=== PATIENT | female | born 1940 | race Caucasian/White ===

== ENCOUNTER → 2020-09-22 14:14 | Outpatient (CLI) | payer OTHER, SELFPAY ==
--- NOTE | ~2020-09-22 | MM_ITS ---
EXAMINATION: MM screening [facility] BI w bobbi HISTORY: Screening mammogram, family history of breast cancer in her sister. TECHNIQUE: Craniocaudal and mediolateral oblique 3-D tomosynthesis images were obtained and synthetic 2-D images were generated. CAD analysis was submitted and interpreted. COMPARISON: 04/17/2017, 06/02/2015 BREAST PARENCHYMAL COMPOSITION: There are scattered areas of fibroglandular density. FINDINGS: Stable focal asymmetry is present in the upper outer quadrant of the left breast. There is no evidence of suspicious mass, calcification, or architectural distortion to suggest malignancy in e ither breast. There has been no suspicious interval change. IMPRESSION: 1. No mammographic evidence of malignancy. 2. Recommend routine screening mammography in one year. BI-RADS Category 1: Negative Reviewed, dictated and finalized at location A.
--- NOTE | ~2020-09-22 | DEXA_ITS ---
Bone Density Report Name: Heather Eugene Age: 80 Sex: Female Ethnicity: White Date of : 1940 Indication: postmenopausal; screening for osteoporosis; height loss; hysterectomy; Referring Provider: RAIN PALACIOS Study: Bone densitometry was performed. Exam Date: September 22, 2020 Accession number: [id number] Bone Density: Region BMD T-score Z-score Classification AP Spine (L1, L2, L3) 0.720 -2.7 -0.2 Osteoporosis Femoral Neck (Left) 0.483 -3.3 -1.1 Osteoporosis Total Hip (Left) 0.681 -2.1 -0.2 Osteopenia Femoral Neck (Right) 0.520 -3.0 -0.7 Osteoporosis Total Hip (Right) 0.695 -2.0 -0.1 Osteopenia Total Hip Mean 0.688 -2.1 -0.2 Osteopenia World Health Organization criteria for BMD impression classify patients as: Normal (T-score at or above -1.0), Osteopenia (T-score between -1.0 and -2.5), or Osteoporosis (T-score at or below -2.5). 10-year Fracture Risk: FRAX not reported because: Some T-score for Spine Total or Hip Total or Femoral Neck at or below -2.5 Clinical Information Provided by Patient: Smokes Has the following medical conditions: Hysterectomy Patient maximum height was 61 Menopause Age: 39 No regular weight bearing exercise Does not regularly consume dairy products Onset of menses at age 18 Number of children 2 Impression: The patient has osteoporosis, based on the Left Femoral Neck T-score. The patient has risk factors, including: smoking. Discussion: INCREASED RISK OF FRACTURE. BONE DENSITY IS UNDESIRABLY LOW AT ONE OR MORE SKELETAL SITES, CONSISTENT WITH POSTMENOPAUSAL OSTEOPOROSIS. This patient's lowest T-score meets the World Health Organization's (WHO) criteria for osteoporosis at one or more sites (T-score -2.5 or below). In untreated patients, the risk of osteoporotic fracture increases approximately two-fold for each 1.0 SD decrease in T-score. Low bone density is not the only risk factor for fracture; also consider factors such as patient's age, frailty or poor health, risk of falling, risk of injury, previous osteoporotic fracture, family history of osteoporosis, cigarette smoking, low body weight, etc. Not everyone with low bone mineral density has osteoporosis; osteomalacia and other metabolic bone disorders should also be considered. Patients who have osteoporosis should be evaluated for specific diseases and conditions (secondary causes) that may cause or contribute to bone loss. The [place] [employer] Endocrinologists (AACE) and National Osteoporosis Foundation (NOF) recommend pharmacologic intervention for all postmenopausal women whose T-score is in this range. The patient should follow a healthful lifestyle (good nutrition with adequate calcium and vitamin D, and appropriate weight-bearing exercise). Follow-Up: Consider a repeat BMD and Vertebral Fracture
== END ==
PROVIDERS: PCP Emergency Medicine; Visit Provider Emergency Medicine
DX: Z12.31 Encounter for screening mammogram for malignant neoplasm of breast (principal); M81.0 Age-related osteoporosis without current pathological fracture; M85.852 Other specified disorders of bone density and structure, left thigh; M85.851 Other specified disorders of bone density and structure, right thigh
CPT/HCPCS: 77063; 77067; 77080

== ENCOUNTER → 2022-02-23 09:41 | Outpatient (CLI) | payer OTHER, SELFPAY ==
--- NOTE | ~2022-02-23 | CT_ITS ---
EXAMINATION: CT chest high resolution wo ar DATE: 02/23/2022 09:59 INDICATION: Cough, tobacco use TECHNIQUE: Computed tomography (CT) of the chest was performed without intravenous contrast. The dose -length product (DLP) was 122.17 mGy-cm. Automated exposure control and iterative reconstruction tech nique were employed. COMPARISON: None FINDINGS: There is mild emphysema. There are two nodules measuring 2 mm in the left upper lobe on [place]. There is a 2 mm nodule of the right lung apex. There appears to be a 2.5 cm nodule of the righ t thyroid lobe. Calcified pulmonary nodules and calcified right hilar lymph nodes are consistent with old granulomatous disease. There is a posterolateral diaphragmatic hernia on the right containing fa t. Punctate calcifications in an otherwise normal spleen likely represent healed granulomatous diseas e. There is severe thoracic spondylosis. IMPRESSION: 1. Mild emphysema. 2. Nodules of the upper lobes measuring up to 2 mm. Follow-up low-dose CT in one year is recommended 3. Right thyroid nodule. Thyroid ultrasound is recommended for risk stratification. Reviewed, dictated and finalized at location A. IMPRESSION: 1. Mild emphysema. 2. Nodules of the upper lobes measuring up to 2 mm. Follow-up low-dose CT in on e year is recommended 3. Right thyroid nodule. Thyroid ultrasound is recommended for risk stratificat ion.
== END ==
PROVIDERS: PCP Emergency Medicine
DX: R05.9 Cough, unspecified (principal); R91.1 Solitary pulmonary nodule; J43.9 Emphysema, unspecified
CPT/HCPCS: 71250

== ENCOUNTER → 2022-03-17 14:32 | Outpatient (CLI) | payer OTHER, SELFPAY ==
--- NOTE | ~2022-03-17 | US_ITS ---
EXAMINATION: US thyroid DATE: 03/17/2022 14:47 INDICATION: Nontoxic single thyroid nodule. TECHNIQUE: Multiple ultrasound images of the thyroid were obtained. COMPARISON: None. FINDINGS: The right thyroid lobe measures 4.2 x 1.8 x 3.3 cm. The left thyroid lobe measures 3.6 x 1.6 x 1.1 c m. In the right thyroid lobe, there is a 3.1 cm solid, isoechoic, wider than tall nodule with smooth margin without echogenic foci (TI-RADS TR3). In the left thyroid isthmus, there is an 8 mm solid, hy poechoic, wider than tall nodule with smooth margin without echogenic foci (TR4). IMPRESSION: 1. Multinodular goiter. Ultrasound-guided fine-needle aspiration of the right thyroid nodule is recom mended. Reviewed, dictated and finalized at location A. IMPRESSION: 1. Multinodular goiter. Ultrasound-guided fine-needle aspiration of the right t hyroid nodule is recommended.
--- NOTE | ~2022-03-17 | MM_ITS ---
EXAMINATION: MM screening [facility] BI w bobbi HISTORY: Screening TECHNIQUE: Craniocaudal and mediolateral oblique 3-D tomosynthesis images were obtained and synthetic 2-D images were generated. CAD analysis was submitted and interpreted. COMPARISON: Comparison to multiple prior studies sequentially, with oldest reviewed study dated 06/02. BREAST PARENCHYMAL COMPOSITION: There are scattered areas of fibroglandular density. FINDINGS: There is no evidence of suspicious mass, calcification, or architectural distortion to sugg est malignancy in either breast. There has been no suspicious interval change. IMPRESSION: 1. No mammographic evidence of malignancy. 2. Recommend routine screening mammography in one year. BI-RADS Category 1: Negative Reviewed, dictated and finalized at location A.
== END ==
PROVIDERS: PCP Emergency Medicine; Visit Provider Emergency Medicine
DX: Z12.31 Encounter for screening mammogram for malignant neoplasm of breast (principal); E04.2 Nontoxic multinodular goiter
CPT/HCPCS: 76536; 77063; 77067

== ENCOUNTER 2022-03-31 11:52 | Outpatient (CLI) | payer OTHER, SELFPAY ==
--- NOTE | ~2022-03-31 | US_ITS ---
EXAMINATION: US FNA w image guidance DATE: 03/31/2022 12:53 INDICATION: Nontoxic goiter, unspecified. TECHNIQUE: The procedure and its benefits and risks were discussed with the patient. Risks specifically discusse d included bleeding. The patient verbalized understanding of the risks and agreed to proceed. The nec k was prepped and draped in the usual sterile manner. 1% lidocaine was used for local anesthesia. 6 passes were made with a 25G needle into the lesion under ultrasound guidance. There were no immedia te complications. FINDINGS: Grayscale ultrasound images demonstrate needles advanced into a 3.1 cm nodule in right thyroid lobe f or biopsy. IMPRESSION: 1. Ultrasound-guided fine needle aspiration of a nodule in right thyroid lobe. Reviewed, dictated and finalized at location A. [employer]
== END 2022-03-31 11:53 | disposition home or self-care (01) ==
PROVIDERS: PCP Emergency Medicine; Visit Provider Emergency Medicine
DX: E04.9 Nontoxic goiter, unspecified (principal)
CPT/HCPCS: 10005; 88173; 88305

== ENCOUNTER 2022-07-01 18:52 | Emergency (ER) | payer OTHER, SELFPAY ==
--- NOTE | ~2022-07-01 | XR_ITS ---
XR chest 1V portable 07/01/2022 21:44 Indication: Weakness and hypertension. Procedure: AP portable chest Comparison: 10/26/2018 Findings: No focal air space disease, pulmonary edema, pleural effusion or suspected pneumothorax. He art size normal. Moderate size hiatal hernia. There is dextroscoliosis of the thoracic spine. There i s atherosclerosis. There are diaphragmatic calcifications suggesting previous asbestos exposure. No a cute osseous abnormality. Impression: 1: No acute cardiopulmonary disease. Reviewed, dictated and finalized at location A. LE CAPPER Impression: 1: No acute cardiopulmonary disease.
[2022-07-01 18:56] VITALS: BP 157/55; PULSE 75; RESP 18; TEMP 36.4; O2SAT 98
--- NOTE | 2022-07-01 21:28 | ECG_ITS ---
Measurements Intervals [place] Rate: 71 P: 32 IA: 186 QRS: -67 QRSD: 102 T: 40 QT: 401 QTc: 438 Interpretive Statements SINUS RHYTHM BASELINE ARTIFACT INCOMPLETE RIGHT BUNDLE BRANCH BLOCK LEFT ANTERIOR FASCICULAR BLOCK POSSIBLE LATERAL MYOCARDIAL INFARCTION, PROBABLY OLD ABNORMAL ECG NO PREVIOUS ECG AVAILABLE FOR COMPARISON Electronically Signed On 07-02-2022 16:37:57 RN CARE MANAGER by Brent Jennings M.D.
--- NOTE | 2022-07-01 21:31 | ED.GENADULT ---
HPI - General Adult General Chief complaint: Dizziness Stated complaint: dizzy/htn Time Seen by Provider: 07/01/22 20:56 History of Present Illness HPI narrative: This is a 81-year-old female presenting ED with chief complaint of weakness x2 weeks. Patient had her shingles vaccine 2 weeks ago. Since then she says that she has just felt weak. No focal complaints such as URI symptoms, chest pain difficulty breathing fever chills abdominal pain or urinary symptoms. She has been treating herself with zinc and magnesium supplementation but she has been taking a directed. she does notice that she does not drink very much fluid. earlier today she had. Of disequilibrium where she felt like she can have her balance. During this time there is no focal deficits, no double vision dysphagia dysarthria or dystaxia. Related Data Home Medications Medication Instructions Recorded Confirmed albuterol sulfate 90 mcg/actuation 2 puff inhalation Q4-6H PRN 07/15/19 04/06/22 aerosol inhaler cyclosporine 0.05 % eye drops in a 1 drop ophthalmic (eye) .COMPLEX 07/15/19 04/06/22 dropperette (Restasis) vitamin B12 1,000 mcg-folic acid See Rx Instructions .Route .COMPLEX 07/15/19 04/06/22 400 mcg sublingual tablet fqnraqsh-udkaikw-koif-lutein tablet See Rx Instructions PO DAILY 07/16/19 04/06/22 olopatadine 0.6 % nasal spray 2 spray intranasal BID 03/08/21 04/06/22 calcium carbonate 600 mg-vitamin cap PO .PO 03/22/22 04/06/22 D3 10 mcg (400 unit) capsule cetirizine 10 mg tablet (Zyrtec) 10 mg PO DAILY PRN 03/22/22 04/06/22 Allergies Allergy/AdvReac Type Severity Reaction Status Date / Time codeine Allergy Mild Vomiting Verified 04/05/22 09:18 tetanus immune globulin Allergy Mild Swelling Verified 04/05/22 09:18 Tetanus Vaccines and Toxoid Allergy Unknown Unknown Verified 04/05/22 09:18 [facility] Past Medical History Medical History GERD (gastroesophageal reflux disease) History of HLD (hyperlipidemia) Tobacco abuse Surgical History Surgical History H/O dilation and curettage H/O total hysterectomy S/P appendectomy S/P endometrial ablation S/P myomectomy [place] teeth removed Family History Family History Sibling Family history of malignant neoplasm of breast in first degree relative Father Family history of malignant neoplasm, Onset Age: 97 Mother Family history of dementia, Onset Age: 95 Social History Social History Smoking packs per day: 0.5 Smoking cigarettes per day: 10.0 Years smoked: 61 Smoking pack-years: 30.50 Smoking status: Current every day smoker Tobacco type: cigarettes Alcohol intake: current Substance use: never Lack of Transportation: No Lack of Food: Never True Current Housing: I Have Housing Concerned About Future Housing: No Difficulty Paying Gas/Electric Bills: No Difficulty Paying for Meds: No Currently Unemployed: No Education: High School Diploma/GED Difficulty w/ Childcare or Family Care: No Exam Narrative: APPEARANCE: No apparent distress. patient is well-appearing Head: atraumatic. EYES: EOMI, NOSE: Atraumatic NECK: Trachea midline RESPIRATORY: No increased rate of breathing, clear to auscultation bilaterally CARDIOVASCULAR: RRR, no peripheral edema ABDOMINAL: Non-distended nontender no guarding or rebound MUSCULOSKELETAl: No obvious deformities NEURO: Alert. Moving 4/4 extremities SKIN:: Warm, dry. Normal color PSYCHIATRIC: Normal affect Course Vital Signs Vital signs: Vital Signs Temperature 97.5 F L 07/01/22 18:56 Pulse Rate 75 07/01/22 18:56 Respiratory Rate 18 07/01/22 18:56 Blood Pressure 157/55 H 07/01/22 18:56 Pulse Oximetry 98 07/01/22 18:56 Oxygen Delivery Room Air 02
[2022-07-01 21:58] LABS: Appearance Urine Clear (Clear); Basophils Absolute Auto 0.1 K/mm3 (0.0-0.1); Basophils Percent Auto 0.7 % (0.2-1.2); Bilirubin Urine Negative (Negative); Blood Urine Trace-intact (Negative); Color Urine Yellow (Yellow); Eosinophils Absolute Auto 0.1 K/mm3 (0-0.3); Eosinophils Percent Auto 1.3 % (0-4.4); Glucose Urine UA Negative (Negative); Hematocrit 36.8 % (37.0-47.0); Hemoglobin 12.7 g/dL (12.0-15.0); Immature Granulocyte Absolute 0.03 K/mm3 (0.00-0.031); Immature Granulocyte Percent A 0.3 % (0-0.5); Ketones Urine Negative (Negative); Leukocyte Esterase Ur 2+ LEU/UL (Negative); Lymphocytes Absolute Auto 2.56 K/mm3 (0.9-3.2); Lymphocytes Percent Auto 24.4 % (18.3-44.2); Mean Corpuscular HGB Conc 34.5 g/dl (32-36); Mean Corpuscular Hemoglobin 30.9 pg (26-34); Mean Corpuscular Volume 89.5 fl (80-100); Mean Platelet Volume 9.7 fl (7.4-10.4); Monocytes Absolute Auto 0.7 K/mm3 (0.1-0.6); Monocytes Percent Auto 6.6 % (2.6-8.5); Neutrophils Percent Auto 66.7 % (45.5-73.1); Nitrate Urine Positive (Negative); Platelet Count Result 305 k/mm3 (150-375); Protein Urine Negative (Negative); Red Blood Count 4.11 M/mm3 (4.2-5.4); Red Cell Distribution Width 13.8 % (11.5-14.5); Urobilinogen Urine 0.2 mg/dL (<2.0); White Blood Count 10.5 K/mm3 (4.5-10.0)
[2022-07-01] MEDS: IBUPROFEN 400 MG TABLET 800 MG PO (21:58)
[2022-07-01] MEDS: methocarbamoL 750 MG TABLET 1500 MG PO (22:01)
[2022-07-01] MEDS: SODIUM CHLORIDE 0.9% IV 2,000 ML 999 ML IV CONT (22:02)
[2022-07-01 22:05] LABS: Add Urine Microscopic? YES; Bacteria Urine Trace /hpf; RBC Urine 0-2 /hpf (0-2); Squamous Epithelial Cell Urine Occasional /hpf (Few); WBC Urine 51-75 /hpf
[2022-07-01 22:07] LABS: Anion Gap 2 mmol/L (8-16); Blood Urea Nitrogen 9 mg/dL (7-17); Carbon Dioxide 30 mmol/L (22-30); Chloride 98 mmol/L (98-107); Estimated Glomerular Filt Rate > 60; Glucose 107 mg/dL (65-110); Potassium 3.4 mmol/L (3.4-5.0); Sodium 130 mmol/L (137-145)
[2022-07-01 22:33] LABS: Influenza A QL RT-PCR Negative (Negative); Influenza B QL RT-PCR Negative (Negative); RSV RNA, RT-PCR Negative (Negative); SARS-CoV-2 RNA PCR Negative
[2022-07-01 22:40] VITALS: BP 156/58; PULSE 71; RESP 18; O2SAT 99
--- NOTE | 2022-07-01 23:24 | PC.NURSE ---
Report received from LUL Lambert. Assumed care of patient at this time.
== END 2022-07-02 00:18 | disposition home or self-care (01) ==
PROVIDERS: Emergency Provider Emergency Medicine; PCP Internal Medicine
DX: N39.0 Urinary tract infection, site not specified (principal); Z20.822 Contact with and (suspected) exposure to COVID-19; E78.5 Hyperlipidemia, unspecified; K21.9 Gastro-esophageal reflux disease without esophagitis; Z90.710 Acquired absence of both cervix and uterus; F17.210 Nicotine dependence, cigarettes, uncomplicated; I45.2 Bifascicular block
CPT/HCPCS: 36415; 71045; 80048; 81001; 83735; 85025; 87077; 87086; 87186; 87637; 93005; 96361; 96365; 99284; A9270; J0696; J7030

== ENCOUNTER 2022-08-19 11:22 | Outpatient (CLI) | payer OTHER, SELFPAY ==
[2022-08-19 11:56] LABS: Appearance Urine Cloudy (Clear); Bacteria Urine 4+ /hpf; Bilirubin Urine Negative (Negative); Blood Urine Negative (Negative); Color Urine Yellow (Yellow); Glucose Urine UA Negative (Negative); Ketones Urine Negative (Negative); Leukocyte Esterase Ur 2+ LEU/UL (Negative); Nitrate Urine Positive (Negative); Non Pathogenic Casts 0-2; Protein Urine Negative (Negative); RBC Urine 0-2 /hpf (0-2); Specific Grav Ur 1.009 (1.001-1.035); Squamous Epithelial Cell Urine None seen /hpf (Few); Urobilinogen Urine 0.2 mg/dL (<2.0); WBC Urine 21-50 /hpf
[2022-08-19 12:31] LABS: Add Urine Microscopic? YES
== END 2022-08-19 11:23 | disposition home or self-care (01) ==
PROVIDERS: PCP Physician Assistant; Visit Provider Internal Medicine
DX: R30.0 Dysuria (principal)
CPT/HCPCS: 81001; 87077; 87086; 87186

== ENCOUNTER 2022-08-23 09:59 | Emergency (ER) | payer OTHER, SELFPAY ==
--- NOTE | ~2022-08-23 | XR_ITS ---
XR chest 2V 08/23/2022 11:33 Indication: Cough Procedure: 2 view chest Comparison: 07/01/2022 Findings: Bibasilar airspace disease, compatible with pneumonia. Cardiomegaly. There is atheroscleros is. There is scoliosis. No acute osseous abnormality. Impression: 1: Bibasilar airspace disease, compatible with pneumonia. Reviewed, dictated and finalized at location L. Impression: 1: Bibasilar airspace disease, compatible with pneumonia.
[2022-08-23 10:07] VITALS: BP 176/62; PULSE 81; RESP 18; TEMP 36.9; O2SAT 100
[2022-08-23 10:28] LABS: Appearance Urine Clear (Clear); Bilirubin Urine Negative (Negative); Blood Urine Negative (Negative); Color Urine Yellow (Yellow); Glucose Urine UA Negative (Negative); Ketones Urine Negative (Negative); Leukocyte Esterase Ur Negative LEU/UL (Negative); Nitrate Urine Negative (Negative); Protein Urine Negative (Negative); Specific Grav Ur 1.005 (1.001-1.035); Urobilinogen Urine 0.2 mg/dL (<2.0)
[2022-08-23 10:32] LABS: Add Urine Microscopic? NO
--- NOTE | 2022-08-23 10:49 | ECG_ITS ---
Measurements Intervals [place] Rate: 63 P: 24 WV: 171 QRS: -66 QRSD: 92 T: 29 QT: 391 QTc: 402 Interpretive Statements SINUS RHYTHM INCOMPLETE RIGHT BUNDLE BRANCH BLOCK LEFT ANTERIOR FASCICULAR BLOCK POSSIBLE LATERAL INFARCT, AGE INDETERMINATE ABNORMAL ECG COMPARED TO ECG 07/01/2022 22:34:08 NO SIGNIFICANT CHANGES Electronically Signed On 08-23-2022 16:26:13 CDT by Brent Jennings M.D.
--- NOTE | 2022-08-23 10:49 | ED.FEMALEGU ---
HPI - Female Genitourinary General Chief complaint: Urogenital-Female Stated complaint: UTI, lower back pain Time Seen by Provider: 08/23/22 10:39 History of Present Illness HPI Narrative: 81-year-old female with a history of hypertension, GERD, hyperlipidemia, chronic sinusitis reports for evaluation of generalized weakness and for the past few days. Patient reports she is on her second round of antibiotics for urinary tract infection. States her symptoms for UTIs always present with low back pain. She normally does not experience dysuria, urinary frequency or urgency. She was initially diagnosed with UTI on 07/01 in this emergency department, given IV Rocephin in the emergency department sent home with outpatient Keflex. She reported persistent symptoms and was started on Cipro 4 days ago by her PCP. Patient states she has been taking the medication as prescribed and has had an improvement in her low back pain, however has developed generalized weakness. She is currently being treated for allergic rhinitis by her primary care provider and has recently started Flonase. Patient states she has been having nasal congestion and chest congestion with an intermittent productive cough that occurs when she lays down for the past 2 weeks. She denies fever, body aches, chills, chest pain or shortness of breath, abdominal pain, nausea, vomiting, diarrhea, focal numbness or weakness. Related Data Home Medications Medication Instructions Recorded Confirmed albuterol sulfate 90 mcg/actuation 2 puff inhalation Q4-6H PRN 07/15/19 07/15/22 aerosol inhaler cyclosporine 0.05 % eye drops in a 1 drop ophthalmic (eye) .COMPLEX 07/15/19 07/15/22 dropperette (Restasis) vitamin B12 1,000 mcg-folic acid See Rx Instructions .Route .COMPLEX 07/15/19 07/15/22 400 mcg sublingual tablet bnwupthw-fnxkbec-ijde-lutein tablet See Rx Instructions PO DAILY 07/16/19 07/15/22 olopatadine 0.6 % nasal spray 2 spray intranasal BID 03/08/21 07/15/22 calcium carbonate 600 mg-vitamin cap PO .PO 03/22/22 07/15/22 D3 10 mcg (400 unit) capsule cetirizine 10 mg tablet (Zyrtec) 10 mg PO DAILY PRN 03/22/22 07/15/22 Allergies Allergy/AdvReac Type Severity Reaction Status Date / Time codeine Allergy Mild Vomiting Verified 07/12/22 13:54 tetanus immune globulin Allergy Mild Swelling Verified 07/12/22 13:54 Tetanus Vaccines and Toxoid Allergy Unknown Unknown Verified 07/12/22 13:54 Review of Systems Review of Systems: CONSTITUTIONAL: Denies fever, chills EYES: Denies visual changes, redness, or discharge. ENT: Denies rhinorrhea, congestion, sore throat, or otalgia. CARDIOVASCULAR: Denies chest pain, palpitations, or edema. RESPIRATORY: See HPI GASTROINTESTINAL: Denies abdominal pain, nausea, vomiting, or diarrhea. GENITOURINARY: Denies dysuria or hematuria. SKIN: Denies rash or itching. MUSCULOSKELETAL: See HPI NEUROLOGIC: Denies headache, numbness, dizziness, or weakness. PSYCHIATRIC: Denies anxiety or depression. [facility] Past Medical History Medical History GERD (gastroesophageal reflux disease) History of HLD (hyperlipidemia) Tobacco abuse Surgical History Surgical History H/O dilation and curettage H/O total hysterectomy S/P appendectomy S/P endometrial ablation S/P myomectomy [place] teeth removed Family History Family History Sibling Family history of malignant neoplasm of breast in first degree relative Father Family history of malignant neoplasm, Onset Age: 97 Mother Family history of dementia, Onset Age: 95 Social History Social History Smoking packs per day: 0.5 Smoking cigarettes per day: 10.0 Years smoked: 61 Smoking pack-years: 30.50 Smoking status: Current every day smoker
[2022-08-23] MEDS: ACETAMINOPHEN 500 MG TABLET 1000 MG PO (11:07)
[2022-08-23] MEDS: SODIUM CHLORIDE 0.9% IV 1,000 ML 999 ML IV CONT (11:07)
[2022-08-23 11:17] LABS: Basophils Absolute Auto 0.1 K/mm3 (0.0-0.1); Basophils Percent Auto 0.7 % (0.2-1.2); Eosinophils Absolute Auto 0.1 K/mm3 (0-0.3); Eosinophils Percent Auto 0.6 % (0-4.4); Hemoglobin 13.2 g/dL (12.0-15.0); Immature Granulocyte Absolute 0.03 K/mm3 (0.00-0.031); Immature Granulocyte Percent A 0.4 % (0-0.5); Lymphocytes Percent Auto 23.4 % (18.3-44.2); Mean Corpuscular HGB Conc 33.8 g/dl (32-36); Mean Corpuscular Hemoglobin 29.9 pg (26-34); Mean Corpuscular Volume 88.4 fl (80-100); Mean Platelet Volume 10.1 fl (7.4-10.4); Monocytes Absolute Auto 0.4 K/mm3 (0.1-0.6); Monocytes Percent Auto 4.8 % (2.6-8.5); Neutrophils Absolute Auto 5.7 K/mm3 (1.3-6.7); Neutrophils Percent Auto 70.1 % (45.5-73.1); Platelet Count Result 348 k/mm3 (150-375); Red Blood Count 4.41 M/mm3 (4.2-5.4); Red Cell Distribution Width 14.2 % (11.5-14.5); White Blood Count 8.1 K/mm3 (4.5-10.0)
[2022-08-23 11:32] LABS: Alanine Aminotransferase 18 U/L (6-35); Albumin Level 4.7 g/dL (3.5-5.1); Alkaline Phosphatase 89 U/L (38-126); Anion Gap 5 mmol/L (8-16); Aspartate Amino Transferase 27 U/L (14-36); Bilirubin,Total 0.5 mg/dL (0.2-1.3); Blood Urea Nitrogen 6 mg/dL (7-17); Calcium 9.4 mg/dL (8.4-10.2); Carbon Dioxide 30 mmol/L (22-30); Chloride 97 mmol/L (98-107); Estimated Glomerular Filt Rate > 60; Glucose 108 mg/dL (65-110); Potassium 3.6 mmol/L (3.4-5.0); Sodium 132 mmol/L (137-145)
[2022-08-23 11:57] LABS: Influenza A QL RT-PCR Negative (Negative); Influenza B QL RT-PCR Negative (Negative); SARS-CoV-2 RNA PCR Negative
[2022-08-23 12:41] VITALS: BP 163/57; PULSE 71; RESP 12; O2SAT 97
[2022-08-23 13:51] VITALS: BP 135/77; PULSE 70; RESP 18; O2SAT 100
== END 2022-08-23 13:52 | disposition home or self-care (01) ==
PROVIDERS: Emergency Medicine; Emergency Provider Physician Assistant; PCP Physician Assistant
DX: J20.8 Acute bronchitis due to other specified organisms (principal); Z20.822 Contact with and (suspected) exposure to COVID-19; E78.5 Hyperlipidemia, unspecified; I10 Essential (primary) hypertension; J32.9 Chronic sinusitis, unspecified; K21.9 Gastro-esophageal reflux disease without esophagitis; Z90.710 Acquired absence of both cervix and uterus; F17.210 Nicotine dependence, cigarettes, uncomplicated
CPT/HCPCS: 36415; 71046; 80053; 81003; 85025; 87636; 93005; 96360; 99283; A9270; J7030

== ENCOUNTER 2022-08-31 10:43 | Outpatient (CLI) | payer OTHER, SELFPAY ==
[2022-08-31 11:08] LABS: Appearance Urine Clear (Clear); Bacteria Urine None Seen /hpf; Bilirubin Urine Negative (Negative); Blood Urine Negative (Negative); Color Urine Yellow (Yellow); Glucose Urine UA Negative (Negative); Ketones Urine Negative (Negative); Leukocyte Esterase Ur Trace LEU/UL (NEGATIVE); Nitrate Urine Negative (Negative); Non Pathogenic Casts 0-2; Protein Urine Negative (Negative); RBC Urine 0-2 /hpf (0-2); Specific Grav Ur 1.006 (1.001-1.035); Squamous Epithelial Cell Urine None seen /hpf (Few); Urobilinogen Urine 0.2 mg/dL (<2.0); WBC Urine 0-5 /hpf (0-3)
[2022-08-31 11:19] LABS: Add Urine Microscopic? YES
== END 2022-08-31 10:44 | disposition home or self-care (01) ==
PROVIDERS: PCP Physician Assistant; Visit Provider Physician Assistant
DX: M54.9 Dorsalgia, unspecified (principal)
CPT/HCPCS: 81001; 87086

== ENCOUNTER 2022-11-22 10:30 | Outpatient (CLI) | payer OTHER, SELFPAY ==
[2022-11-22 12:05] LABS: Appearance Urine Clear (Clear); Bacteria Urine None Seen /hpf; Bilirubin Urine Negative (Negative); Blood Urine Negative (Negative); Color Urine Yellow (Yellow); Glucose Urine UA Negative (Negative); Ketones Urine Negative (Negative); Leukocyte Esterase Ur Trace LEU/UL (NEGATIVE); Nitrate Urine Negative (Negative); Non Pathogenic Casts 0-2; Protein Urine Negative (Negative); RBC Urine 0-2 /hpf (0-2); Specific Grav Ur 1.008 (1.001-1.035); Squamous Epithelial Cell Urine Occasional /hpf (Few); Urobilinogen Urine 0.2 mg/dL (<2.0); WBC Urine 0-5 /hpf (0-3); pH Urine 7.5 (5.0-9.0)
[2022-11-22 12:12] LABS: Add Urine Microscopic? YES
== END 2022-11-22 10:31 | disposition home or self-care (01) ==
LOC: ANHLAB 10:33
PROVIDERS: PCP Physician Assistant; Visit Provider Physician Assistant
DX: R30.0 Dysuria (principal)
CPT/HCPCS: 81001; 87086; 87088

== ENCOUNTER 2023-01-27 00:30 | Day surgery (SDC) | payer OTHER, SELFPAY ==
[2023-01-23 15:06] VITALS: BMI 22.2
--- NOTE | ~2023-01-27 | XR_ITS ---
EXAMINATION: XR abdomen/kub 1V INDICATION: Upper abdominal pain TECHNIQUE: Supine view the abdomen is obtained. COMPARISON: None FINDINGS: There is moderate gaseous distention of the colon which could relate to colonoscopy. There is S-shaped curvature of the spine. The visualized lung bases are clear. Striated densities crossing the patient appear to be external to the patient. IMPRESSION: 1. Moderate gaseous distention of the colon which could relate to colonoscopy. If there is concern fo r additional bowel abnormality, further evaluation with CT is recommended. Reviewed, dictated and finalized at location F. IMPRESSION: 1. Moderate gaseous distention of the colon which could relate to colonoscopy. If there is concern for additional bowel abnormality, further evaluation with C T is recommended.
--- NOTE | 2023-01-27 11:06 | WPDANESEPPF ---
Anes - Initial Pre Proc Eval Procedure: Operation Date: 01/27/23 13:00 Proposed Procedures p Colonoscopy - Davi Kaur MD Date/Time: 01/27/23 11:06 Surgeon: Davi Kaur MD Pre Op Diagnosis: other fecal abnormalities Patient Data Age: 82 Gender: F Height: 1.5 m Weight: 50 kg Allergies Allergy/AdvReac Type Severity Reaction Status Date / Time codeine Allergy Mild Vomiting Verified 01/27/23 11:33 tetanus immune globulin Allergy Mild Swelling Verified 01/27/23 11:33 Tetanus Vaccines and Toxoid Allergy Unknown Unknown Verified 01/27/23 11:33 Home Medications Medication Instructions Recorded Confirmed Type albuterol sulfate 90 mcg/actuation 2 puff inhalation Q4-6H PRN SOB 07/15/19 01/23/23 History aerosol inhaler cyclosporine 0.05 % eye drops in a 1 drop ophthalmic (eye) .COMPLEX 07/15/19 01/23/23 History dropperette (Restasis) vitamin B12 1,000 mcg-folic acid See Rx Instructions .Route .COMPLEX 07/15/19 01/23/23 History 400 mcg sublingual tablet omqxosit-hahipst-opjh-lutein tablet See Rx Instructions PO DAILY 07/16/19 01/23/23 History calcium carbonate 600 mg-vitamin 1 cap PO DAILY 03/22/22 01/23/23 History D3 10 mcg (400 unit) capsule cetirizine 10 mg tablet (Zyrtec) 10 mg PO DAILY PRN Allergies 03/22/22 01/23/23 History rosuvastatin 10 mg tablet (Crestor) 10 mg PO DAILY #90 tabs 05/27/22 01/23/23 Rx acetaminophen 500 mg tablet 1,000 mg PO TID PRN lulu 7 days #42 07/02/22 01/23/23 Rx tabs ibuprofen 800 mg tablet 800 mg PO TID PRN pain 7 days #21 07/02/22 01/23/23 Rx tabs losartan 50 mg tablet See Rx Instructions .Route 09/09/22 01/23/23 Rx .COMPLEX #90 tabs amlodipine 5 mg tablet See Rx Instructions .Route 09/19/22 01/23/23 Rx .COMPLEX #90 tabs hydrochlorothiazide 12.5 mg capsule See Rx Instructions .Route 09/19/22 01/23/23 Rx .COMPLEX #90 caps esomeprazole magnesium 40 mg See Rx Instructions .Route 12/22/22 01/23/23 Rx capsule,delayed release .COMPLEX #90 caps azelastine 137 mcg (0.1 %) nasal 1 spray intranasal BID 01/23/23 01/23/23 History spray aerosol fluticasone propionate 50 1 spray intranasal BID 01/23/23 01/23/23 History mcg/actuation nasal spray,suspension Patient hx anesthesia problems: none Family hx anesthesia problems: none Results Review: All pre-operative results and documents have been reviewed as part of the pre-operative evaluation. [facility] Past Medical History Medical History (Updated 01/27/23 @ 11:06 by James Garcia DO) COPD (chronic obstructive pulmonary disease) GERD (gastroesophageal reflux disease) History of HLD (hyperlipidemia) Hypertension Tobacco abuse Surgical History Surgical History H/O dilation and curettage H/O total hysterectomy S/P appendectomy S/P endometrial ablation S/P myomectomy [place] teeth removed Family History Family History Sibling Family history of malignant neoplasm of breast in first degree relative Father Family history of malignant neoplasm, Onset Age: 97 Mother Family history of dementia, Onset Age: 95 Social History Social History Smoking packs per day: 0.5 Smoking cigarettes per day: 10.0 Years smoked: 65 Smoking pack-years: 32.50 Smoking status: Current every day smoker Tobacco type: cigarettes Alcohol intake: current Substance use: former Lack of Transportation: No Lack of Food: Never True Current Housing: I Have Housing Concerned About Future Housing: No Difficulty Paying Gas/Electric Bills: No Difficulty Paying for Meds: No Currently Unemployed: No Education: High School Diploma/GED Difficulty w/ Childcare or Family Care: No Living arrangements: alone Spiritual care concerns: No Vikis - Tom Godfrey
[2023-01-27 11:35] VITALS: BP 153/62; PULSE 88; RESP 18; TEMP 36.4; O2SAT 100
[2023-01-27] MEDS: LACTATED RINGERS 1,000 ML 150 ML IV CONT (12:01)
--- NOTE | 2023-01-27 12:38 | PM.HPGS ---
History of Present Illness History of Present Illness Consent: Risks, benefits, and alternatives have been discussed and questions answered. Patient agrees to proceed with procedure. Chief complaint: other fecal abnormalities Narrative: Heather Eugene is a 82 year old female here for first colonoscopy, had + cologuard Review of Systems Constitutional: Constitutional: Denies headache(s) and Denies weakness Eyes: Eyes: Denies blurry vision ENT: Reports Normal hearing present, Denies headache(s) and Denies neck pain Cardiovascular: Cardiovascular: Denies chest pain and Denies dyspnea Respiratory: Respiratory: Denies dyspnea Gastrointestinal: Gastrointestinal: Reports no additional gastrointestinal complaints Genitourinary: Genitourinary: Denies dysuria Musculoskeletal: Musculoskeletal: Denies neck pain Integumentary/Breasts: Skin/Breast: Denies dry skin Neurologic: Reports Normal hearing present, Denies headache(s) and Denies weakness Psychiatric: Psychiatric: Denies anxiety Endocrine: Endocrine: Denies change in body appearance Hematologic/Lymphatic: Hematologic/Lymphatic: Denies easy bleeding Allergic/Immunologic: Allergic/Immunologic: Denies urticaria PMFSH Past Medical History Medical History (Updated 01/27/23 @ 12:38 by Davi Kaur MD) COPD (chronic obstructive pulmonary disease) GERD (gastroesophageal reflux disease) History of HLD (hyperlipidemia) Hypertension Positive colorectal cancer screening using Cologuard test Tobacco abuse Surgical History Surgical History H/O dilation and curettage H/O total hysterectomy S/P appendectomy S/P endometrial ablation S/P myomectomy [place] teeth removed Family History Family History Sibling Family history of malignant neoplasm of breast in first degree relative Father Family history of malignant neoplasm, Onset Age: 97 Mother Family history of dementia, Onset Age: 95 Social History Social History Smoking packs per day: 0.5 Smoking cigarettes per day: 10.0 Years smoked: 65 Smoking pack-years: 32.50 Smoking status: Current every day smoker Tobacco type: cigarettes Alcohol intake: current Substance use: former Lack of Transportation: No Lack of Food: Never True Current Housing: I Have Housing Concerned About Future Housing: No Difficulty Paying Gas/Electric Bills: No Difficulty Paying for Meds: No Currently Unemployed: No Education: High School Diploma/GED Difficulty w/ Childcare or Family Care: No Living arrangements: alone Spiritual care concerns: No Meds Home Medications and Allergies Home Medications Medication Instructions Recorded Confirmed Type albuterol sulfate 90 mcg/actuation 2 puff inhalation Q4-6H PRN SOB 07/15/19 01/23/23 History aerosol inhaler cyclosporine 0.05 % eye drops in a 1 drop ophthalmic (eye) .COMPLEX 07/15/19 01/23/23 History dropperette (Restasis) vitamin B12 1,000 mcg-folic acid See Rx Instructions .Route .COMPLEX 07/15/19 01/23/23 History 400 mcg sublingual tablet afuzhabw-siixnft-zzbv-lutein tablet See Rx Instructions PO DAILY 07/16/19 01/23/23 History calcium carbonate 600 mg-vitamin 1 cap PO DAILY 03/22/22 01/23/23 History D3 10 mcg (400 unit) capsule cetirizine 10 mg tablet (Zyrtec) 10 mg PO DAILY PRN Allergies 03/22/22 01/23/23 History rosuvastatin 10 mg tablet (Crestor) 10 mg PO DAILY #90 tabs 05/27/22 01/23/23 Rx acetaminophen 500 mg tablet 1,000 mg PO TID PRN lulu 7 days #42 07/02/22 01/23/23 Rx tabs ibuprofen 800 mg tablet 800 mg PO TID PRN pain 7 days #21 07/02/22 01/23/23 Rx tabs losartan 50 mg tablet See Rx Instructions .Route 09/09/22 01/23/23 Rx .COMPLEX #90 tabs amlodipine 5 mg tablet See Rx Instructions .Route
[2023-01-27 13:01] VITALS: BP 126/52; PULSE 73; RESP 19; O2SAT 99
[2023-01-27 13:11] VITALS: BP 129/64; PULSE 74; RESP 20; O2SAT 99
[2023-01-27 13:21] VITALS: BP 142/58; PULSE 72; RESP 15; O2SAT 99
[2023-01-27] MEDS: ONDANSETRON INJ 4 MG/2 ML VIAL IV PUSH (13:37)
[2023-01-27] MEDS: KETOROLAC 30 MG/ML VIAL (*BKC) IV PUSH (13:38)
--- NOTE | 2023-01-27 14:03 | SUR.PHASEII ---
1320-Pt c/o constant upper, medial abdominal pain. PL 8. N/V. Dr. Lopez aware. Orders received for Toradol & Zofran. 1345- Orders received for KUB per Dr. Lopez.
--- NOTE | 2023-01-27 14:36 | SUR.PHASEII ---
1420-Notified Dr. Lopez of [facility] results. Okay to discharge home.
== END 2023-01-27 14:25 | disposition home or self-care (01) ==
PROVIDERS: PCP Internal Medicine; Visit Provider Internal Medicine Gastroenterology
PROC: 0DJD8ZZ Inspection of Lower Intestinal Tract, Via Natural or Artificial Opening Endoscopic (ICD-10-PCS; CPT 45378; principal; 2023-01-27 13:00)
DX: R19.5 Other fecal abnormalities (principal); K57.30 Diverticulosis of large intestine without perforation or abscess without bleeding; D12.2 Benign neoplasm of ascending colon; D12.4 Benign neoplasm of descending colon; J44.9 Chronic obstructive pulmonary disease, unspecified; I10 Essential (primary) hypertension; E78.5 Hyperlipidemia, unspecified; K21.9 Gastro-esophageal reflux disease without esophagitis; F17.210 Nicotine dependence, cigarettes, uncomplicated; Z79.51 Long term (current) use of inhaled steroids
CPT/HCPCS: 45385; 74018; 88305; J1885; J2405; J2704; J7120

== ENCOUNTER 2023-05-11 10:27 | Outpatient (CLI) | payer OTHER, SELFPAY ==
--- NOTE | ~2023-05-11 | XR_ITS ---
XR cervical spine 4-5V DATE: 05/11/2023 11:09 INDICATION: Neck pain TECHNIQUE: Neutral, flexion and extension lateral views, AP, open-mouth, odontoid views COMPARISON: None FINDINGS: There is stable minimal anterolisthesis at C2-3 in flexion, extension and neutral. Mild degenerative disc disease at C3-4. There is approximately 1.2 mm anterolisthesis in neutral and 1.7 mm anterolisthesis in flexion at C3-4, reduced in extension. Severe degenerative disc disease at C4-5 and C5-6 with associated minimal retrolisthesis. Moderately severe degenerative disease and mild anterolisthesis at C6-7. C1 and C2 are normally aligned and the odontoid process is intact. No fracture or dislocation or lock ed facet or prevertebral soft tissue swelling is noted. There is prominent degenerative changes apophyseal joints throughout the cervical spine and at the un covertebral joints in the mid and lower cervical spine. IMPRESSION: Prominent cervical spondylosis Reviewed, dictated and finalized at location A. WAVE ASSEMBLER
--- NOTE | ~2023-05-11 | XR_ITS ---
XR thoracic spine 3V DATE: 05/11/2023 11:09 INDICATION: Scoliosis. Back pain. TECHNIQUE: AP, lateral, swimmer views COMPARISON: None FINDINGS: There is diffuse osteopenia. There is prominent rotatory dextroscoliosis of the lower thoracic spine and prominent rotatory levosc oliosis of the lumbar spine. There is multilevel degenerative disc disease involving particularly the lower thoracic spine. No fracture or dislocation of the thoracic spine is evident. The thoracic pedicles appear intact. No paraspinal soft tissue thickening is noted. Extensive thoracic and abdominal aortic calcification. IMPRESSION: Osteopenia Prominent dextro scoliosis of the lower thoracic spine Degenerative changes including severe degenerative disease particularly in the lower thoracic spine Reviewed, dictated and finalized at location A. LE HOME LOT UTILITY WORKER
--- NOTE | ~2023-05-11 | XR_ITS ---
XR lumbar spine 6V w bending DATE: 05/11/2023 11:09 INDICATION: Scoliosis. Back pain. TECHNIQUE: AP, lateral, bilateral oblique views. Flexion and extension lateral views. COMPARISON: None FINDINGS: There is osteopenia. There is prominent rotatory levoscoliosis of the lumbar spine and severe multilevel degenerative disc disease throughout the lumbar spine. The lumbar pedicles appear intact. No fracture or bone destruction is evident. The sacroiliac joints are intact. Extensive calcification of the abdominal aorta, with suggestion of fusiform infrarenal abdominal aort ic aneurysm. Prominent amount fecal material in the colon. IMPRESSION: Osteopenia Rotatory levoscoliosis and severe multilevel degenerative disc disease of lumbar spine Suggestion of fusiform infrarenal abdominal aortic aneurysm Reviewed, dictated and finalized at location A. AND LINK SHOP SUPERVISOR IMPRESSION: Osteopenia Rotatory levoscoliosis and severe multilevel degenerative disc disease of lumba r spine Suggestion of fusiform infrarenal abdominal aortic aneurysm
== END 2023-05-11 10:28 | disposition home or self-care (01) ==
PROVIDERS: PCP Internal Medicine; Visit Provider Physician Assistant
DX: M41.9 Scoliosis, unspecified (principal); M85.88 Other specified disorders of bone density and structure, other site; M47.892 Other spondylosis, cervical region; M51.34 Other intervertebral disc degeneration, thoracic region
CPT/HCPCS: 72050; 72072; 72114

== ENCOUNTER 2023-05-16 11:08 | Outpatient (CLI) | payer OTHER, SELFPAY ==
[2023-05-16 11:35] LABS: Appearance Urine Cloudy (Clear); Bacteria Urine None Seen /hpf; Bilirubin Urine Negative (Negative); Blood Urine Negative (Negative); Color Urine Yellow (Yellow); Glucose Urine UA Negative (Negative); Ketones Urine Negative (Negative); Leukocyte Esterase Ur Negative LEU/UL (NEGATIVE); Nitrate Urine Negative (Negative); Non Pathogenic Casts 0-2; Protein Urine Negative (Negative); RBC Urine 0-2 /hpf (0-2); Specific Grav Ur 1.006 (1.001-1.035); Squamous Epithelial Cell Urine None seen /hpf (Few); Urobilinogen Urine 0.2 mg/dL (<2.0); WBC Urine 0-5 /hpf (0-3)
[2023-05-16 11:40] LABS: Add Urine Microscopic? YES
== END 2023-05-16 11:09 | disposition home or self-care (01) ==
LOC: ANHLAB 11:09
PROVIDERS: PCP Internal Medicine; Visit Provider Physician Assistant
DX: R30.0 Dysuria (principal)
CPT/HCPCS: 81001; 87086

== ENCOUNTER 2023-07-27 08:51 | Outpatient (CLI) | payer OTHER, SELFPAY ==
--- NOTE | ~2023-07-27 | US_ITS ---
EXAMINATION: US aorta DATE: 07/27/2023 09:26 INDICATION: Abdominal aortic aneurysm evident on prior x-ray TECHNIQUE: Grayscale, color Doppler, and pulsed Doppler images of the aorta and common iliac arteries were obtained. COMPARISON: None. FINDINGS: The proximal aorta measures 2.2 cm. The mid aorta measures 2.1 cm. There is fusiform ectasia of the d istal abdominal aorta measuring up to 2.6 cm in maximal diameter. The right common iliac artery measu res 1.0 cm. The left common iliac artery measures 0.8 cm. IMPRESSION: 1. Fusiform ectasia of the distal abdominal aorta measuring up to 2.6 cm. Reviewed, dictated and finalized at location L.
== END 2023-07-27 08:52 | disposition home or self-care (01) ==
PROVIDERS: PCP Internal Medicine; Visit Provider Internal Medicine
DX: I71.40 Abdominal aortic aneurysm, without rupture, unspecified (principal)
CPT/HCPCS: 76775

== ENCOUNTER 2024-04-17 12:22 | Outpatient (CLI) | payer OTHER, SELFPAY ==
[2024-04-17 13:27] LABS: Add Urine Microscopic? YES; Appearance Urine Clear (Clear); Bacteria Urine 4+ /hpf; Bilirubin Urine Negative (Negative); Blood Urine Negative (Negative); Color Urine Yellow (Yellow); Glucose Urine UA Negative (Negative); Ketones Urine Negative (Negative); Leukocyte Esterase Ur 3+ LEU/UL (Negative); Nitrate Urine Positive (Negative); Non Pathogenic Casts 0-2; Protein Urine Negative (Negative); RBC Urine 0-2 /hpf (0-2); Specific Grav Ur 1.008 (1.001-1.035); Squamous Epithelial Cell Urine Occasional /hpf (Few); Urobilinogen Urine 0.2 mg/dL (<2.0); WBC Urine 51-100 /hpf (0-3)
== END 2024-04-17 12:23 | disposition home or self-care (01) ==
LOC: ANHLAB 12:23
PROVIDERS: PCP Internal Medicine; Visit Provider Internal Medicine
DX: R30.0 Dysuria (principal)
CPT/HCPCS: 81001; 87086

== ENCOUNTER 2024-08-06 10:29 | Outpatient (CLI) | payer OTHER, SELFPAY ==
[2024-08-06 11:18] LABS: Add Urine Microscopic? YES; Appearance Urine Clear (Clear); Bacteria Urine None Seen /hpf; Bilirubin Urine Negative (Negative); Blood Urine Negative (Negative); Color Urine Yellow (Yellow); Glucose Urine UA Negative (Negative); Ketones Urine Negative (Negative); Leukocyte Esterase Ur Trace LEU/UL (Negative); Nitrate Urine Negative (Negative); Protein Urine Negative (Negative); RBC Urine 0-2 /hpf (0-2); Specific Grav Ur 1.012 (1.001-1.035); Squamous Epithelial Cell Urine None Seen /hpf (Few); Urobilinogen Urine 0.2 mg/dL (<2.0); WBC Urine 0-5 /hpf (0-3); pH Urine 7.5 (5.0-9.0)
--- OUTSIDE RECORDS SUMMARY | 2024-08-06 12:21 | XMS_ITS | CONTINUITY OF CARE DOCUMENT ---
Author Name joshua christinejim Address Unknown Organization [facility] Address [address] [place] [address] Phone [phone] Care Team Providers Care Craft Superintendent Name Role Phone Armando Kuhn MD Unavailable [phone] RAVEN VORA MD Unavailable [phone] RAVEN VORA MD Unavailable [phone] PROBLEMS Condition Status Date Provider Notes ASTHMA active Armando Kuhn MD HTN ESSENTIAL active Armando Kuhn MD DYSLIPIDEMIA active Armando Kuhn MD CHEST PAIN NON-CARDIAC - 08/24 NUC NEG EF 66 active ? Gab Medina RN ENCOUNTERS Date Type Provider Location Encounter Diag nosis - In-person encounter Office Visit Armando Kuhn MD [place] [facility] - In-person encounter Office Visit Armando Kuhn MD [facility] ASTHMAHTN ESSENTIALDYSLIPIDEMIACHEST PAIN NON-CARDIAC - 08/24 NUC NEG EF 66 VITAL SIGNS Date Observation Value Provider Body Mass Index (Ratio) 26.03 kg/m2 Sherry Alicia blood pressure, diastolic 68 mm[Hg] Tony Alicia blood pressure, systolic 142 mm[Hg] David Alicia pulse rate 69 /min Elly Alicia oxygen saturation, oximetry 98 % Elly Alicia respiratory rate E&M 16 /min Elly cub[place] weight E&M 128.4 [lb_av] Elly Alicia height E&M 59 [in_i] Elly Alicia blood pressure, diastolic, left arm 77 mm [Hg] Margaret Dos Santos blood pressure, systolic, left arm 150 mm [Hg] Margaret Dos Santos blood pressure, diastolic, right arm 73 m m[Hg] Margaret Dos Santos blood pressure, systolic, right arm 151 m m[Hg] Margaret Dos Santos blood pressure, diastolic 73 mm[Hg] Zuleika Dos Santos blood pressure, systolic 151 mm[Hg] Maricarmen Dos Santos pulse rate 66 /min Margaret Dos Santos oxygen saturation, oximetry 98 % Margaret Dos Santos respiratory rate E&M 16 /min Margaret Dos Santos weight E&M 128 [lb_av] Margaret Dos Santos ALLERGIES Allergy Name Onset Date Reaction Criticality Status TETANUS High Criticality active HISTORY OF MEDICATION USE Medication Status Instructions Dates Provider Indications Com ments PEPCID AC 10 MG ORAL TABLET active daily Gab Medina RN ISOREL CAPSULE active daily 4 Margaret Dos Santos KP FISH OIL CAPSULE active daily 4 Margaret Dos Santos ASPIRIN 325MG active daily 4 Margaret Dos Santos CALCIUM TABLET active daily 4 Margaret Dos Santos VITAMIN B-12 1000 MCG ORAL TABLET active daily 4 Margaret Dos Santos TH VITAMIN C TABLET active daily 4 Margaret Dos Santos PRILOSEC 20 MG ORAL CAPSULE DELAYED RELEASE completed as needed 4 - 5 Gab Medina RN PROVENTIL HFA AEROSOL SOLUTION active as needed 4 Margaret Dos Santos FLUTICASONE PROPIONATE SUSPENSION active 50 mcg as needed 4 Gab Medina RN PRAVASTATIN SODIUM 40 MG ORAL TABLET active daily 4 Margaret Dos Santos PRINZIDE 20-12.5 MG TABS active daily 4 Margaret Dos Santos ADVAIR DISKUS 100-50 MCG/DOSE INHALATION AEROSOL POWDER BREATH ACTIVATED active PRN 4 Elly Alicia ATIVAN 1 MG ORAL TABLET active half tab AM and half tab PM 4 Elly Alicia SOCIAL HISTORY Date Observation Value Provider social history E&M Marital Statu s: L fidel alone E thnicity: Gab Medina RN social history reviewed E&M reviewed Gab Medina RN smoking history, tot al pack/year 56 Elly Ravin smoking, date started 1958 Elly Ravin cigarette use yes Elly Alicia smoking status smoker - current status unknown Gab Medina RN smoking/tobacco cess ation, patient education and counseling yes Armando Kuhn MD smoking status Smoker Armando Gonzalez physical exercise, f requency, days per week no Armando Kuhn MD drug use none Armando Kuhn MD social history reviewed E&M reviewed Armando Kuhn MD physical exercise, f requency, days per week yes [employer] caffeine use, averag e drinks per day yes [employer] alcohol use, average drinks per day social basis only [employer] number of years as a smoker 10 years or m ore [employer] MENTAL STATUS Date Observation Value Provider assessment of judgme nt and insight E&M Alert and oriented to time, place and person. Mood and affect are normal. Gab Medina RN assessment of judgme nt and insight E&M Alert and oriented to time, place and person. Mood and affect are normal. Armando Kuhn MD INSURANCE PROVIDERS Payer name Policy type / Coverage type Sawyer red libertarian ID ESSENCE O Other [id number] [employer] O O [id number] TREATMENT PLAN Date Name Complete Echo HISTORY OF PROCEDURES Procedure Date Procedure Name Provider Procedure Notes S tatus EKG Armando Kuhn MD completed
--- OUTSIDE RECORDS SUMMARY | 2024-08-06 12:21 | XMS_ITS ---
Author Organization [facility] Address [address] [place] [address] Care Team Providers Care Grain Sampler Name Role Phone Errol Carrerodie Primary Care Provider UnavailFadia Glover Unavailable [phone] Gentry Espinosa Unavailable Unavailable Fidencio Orlando Unavailable [phone] REASON FOR VISIT SCIT - Traditional Schedule Allergy immunotherapy Medications Medication SIG (Take, Route, Frequency, Duration) Notes Start Date End Date Status OLOPATADINE HYDROCHLORIDE 665 MCG/INH 2 SPRAY(S) INTRANASALLY 2 TIMES A DAY for 90 *Please review for potential replacement for e-prescription and drug interaction check* Not-Taking AMLODIPINE 5 mg 1 tab(s) orally once a day Active Rosuvastatin Calcium 20 MG 1 tab(s) orally once a day for 30 day(s) Not-Taking PATADAY 0.2% 1 gtt in each affected eye once a day, PRN Active SIT (TRADITIONAL) variable per schedule SC per schedule Active OLOPATADINE NASAL 665 MCG/INH 2 SPRAY(S) INTRANASALLY 2 TIMES A DAY for 30 DAYS *Please review for potential replacement for e-prescription and drug interaction check* Not-Taking ROSUVASTATIN 20 mg 1 tab(s) orally once a day for 30 day(s) Not-Taking RESTASIS 0.05% 1 gtt in each affected eye every 12 hours for 30 day(s) Not-Taking ESOMEPRAZOLE 20 mg 1 cap(s) orally once a day for 30 day(s) Not-Taking FLUTICASONE PROPIONATE 50 mcg/inh 1 spray(s) in each nostril bid for 30 day(s) 03/23/2023 Not-Taking VENTOLIN HFA CFC free 90 mcg/inh 2 puff(s) inhaled 4 times a day, PRN Not-Taking VITAMIN D3 10 mcg 1 tab(s) orally once a day for 30 day(s) Not-Taking CALCIUM ACETATE 667 mg 3 tab(s) orally 3 times a day for 30 day(s) Not-Taking CENTRUM SILVER Therapeutic Multiple Vitamins with Minerals 1 tab(s) orally once a day for 30 day(s) Not-Taking VITAMIN B12 250 mcg 1 tab(s) orally once a day for 30 day(s) Not-Taking Albuterol Sulfate HFA 108 (90 Base) MCG/ACT INHALE 2 PUFFS BY MOUTH EVERY 6 HOURS FOR 30 DAYS for 50 due for f/u with provider Active Esomeprazole Magnesium 20 MG 1 cap(s) orally once a day Not-Taking ESOMEPRAZOLE 20 mg 1 cap(s) orally once a day Not-Taking Esomeprazole Magnesium 20 MG 1 cap(s) orally once a day for 30 day(s) Active Fluticasone Propionate 50 MCG/ACT 1 spray(s) in each nostril bid for 30 day(s) 03/23/2023 Active Vitamin D3 10 MCG 1 TAB(S) ORALLY ONCE A DAY for 30 DAY(S) *Please review and pick correct strength-formula tion from Variable options. If intended option is not shown, discontinue and re-order from Quick Search* Active Calcium Acetate 667 MG 3 tab(s) orally 3 times a day for 30 day(s) Active Centrum Silver - 1 tab(s) orally once a day for 30 day(s) Active Vitamin B-12 250 MCG 1 tab(s) orally once a day for 30 day(s) Active Restasis 0.05 % 1 gtt in each affected eye every 12 hours for 30 day(s) Active Cetirizine HCl 10 MG 1 tab(s) orally once a day for 30 days Active EPINEPHrine 0.3 MG 0.3 MG INTRAMUSCULARLY ONCE for 30 DAY(S) *Please review and pick correct strength-formula tion from Variable options. If intended option is not shown, discontinue and re-order from Quick Search* Active OLOPATADINE NASAL 665 MCG/INH 2 SPRAY(S) INTRANASALLY 2 TIMES A DAY *Please review for potential replacement for e-prescription and drug interaction check* Not-Taking Ventolin HFA 108 (90 Base) MCG/ACT 2 puff(s) inhaled 4 times a day, PRN Active Pantoprazole Sodium 20 MG 1 tab(s) orally once a day Active OLOPATADINE NASAL 665 mcg/inh 2 spray(s) intranasally 2 times a day for 30 days Active ALBUTEROL (EQV-PROAIR HFA) 90 mcg/inh 2 puff(s) inhaled every 6 hours for 30 days Active Pataday 0.2 % 1 gtt in each affected eye once a day, PRN Not-Taking amLODIPine Besylate 5 MG 1 tab(s) orally once a day Active Losartan Potassium-HCTZ 50-12.5 MG 1 tab(s) orally twice a day Active EPINEPHRINE 0.3 mg 0.3 mg intramuscularly once for 30 day(s) Active NASAL WASHES N/A as directed intranasally as needed for 30 Active HYDROCHLOROTHIAZIDE -LOSARTAN 12.5 mg-50 mg 1 tab(s) orally once a day Active PANTOPRAZOLE 20 mg 1 tab(s) orally once a day Active CETIRIZINE 10 mg 1 tab(s) orally once a day for 30 days Active Encounters Encounter Location Date Provider Diagnosis [facility] [address] [place] [address] 08/01/2024 Fidencio Orlando Allergic rhinitis du e to pollen J30.1 ; Allergic rhinitis due to animal (cat) (dog) hair and dander J30.81 ; Other allergic rhinitis J30.89 and Other chronic allergic conjunctivitis H10.45 Assessments Encounter Date Diagnosis (ICD Code) Assessment Notes Treatment Notes Treatment Clinical Notes Section Notes 08/01/2024 Allergic rhinitis due to pollen (ICD-10 - J30.1) 08/01/2024 Allergic rhinitis due to animal (cat) (dog) hair and dander (ICD-10 - J30.81) 08/01/2024 Other allergic rhinitis (ICD-10 - J30.89) 08/01/2024 Other chronic allergic conjunctivitis (ICD-10 - H10.45) Plan Of Treatment Medication Medication Name Sig Start Date Stop Date Notes SIT (TRADITIONAL) variable per schedule SC per schedule Next Appt Details Follow Up: 4 Weeks, Reason: Provider Name:Fidencio Ndiaye Darion , 08/22/2024 10:30:00 AM, [facility], [address], [place], [address], Progress Notes * Heather EUGENEDOB:1940 (83 yo F)Acc No.[id number]:08/01/2024 SCIT-Aeroallergen Patient: Heather Barragan AM Provider: Martín Orlando MD :1940 A ge:83 Y S ex:Female Date:08/01/2024 Address:[address] [place], [place] [id number] Pcp:Massimo Carrero Subjective: * Chief Complaints: * S CIT - Traditional Schedule Allergy immunotherapy * HPI: * Introduction: The patient is here for scheduled immunotherapy. Please see the attached specialty form regarding the specifics of the administration of these vaccines. As per our protocol, the must undergo a screening health questionnaire (medication changes, reaction(s) to last immunotherapy dose(s), current health status, ACT (if appropriate), self-injectable epinephrine on patient(?) and peak flow (if appropriate)). Also, the patient must wait in our office for 30 minutes after receiving the vaccine(s). Furthermore, every patient must have an epinephrine pen (self-injectable) with them at the time of administration--and carry if for the following 1.5 hours after they leave our office. The patient must also have taken their antihistamine the day of the injection, preferably 2 hours prior. The consent form for SCIT (subcutaneous immunotherapy) is on file. * ROS: R ESPIRATORY: no s hortness of breath. * Medical History: * Surgical History: * Hospitalization/Major Diagno stic Procedure: * Medications: T akingSIT (TRADITIONAL) variable see record per schedule SC per schedule PATADAY 0.2% solution 1 gtt in each affected eye once a day, PRN AMLODIPINE 5 mg tablet 1 tab(s) orally once a day HYDROCHLOROTHIAZIDE-LOSARTAN 12.5 mg-50 mg tablet 1 tab(s) orally once a day PANTOPRAZOLE 20 mg delayed release tablet 1 tab(s) orally once a day CETIRIZINE 10 mg tablet 1 tab(s) orally once a day EPINEPHRINE 0.3 mg kit 0.3 mg intramuscularly once NASAL WASHES N/A 1 quart of sterilized tap water or distilled water, 1 tsp NaCl, 1 pinch of baking soda as directed intranasally as needed OLOPATADINE NASAL 665 mcg/inh spray 2 spray(s) intranasally 2 times a day ALBUTEROL (EQV-PROAIR HFA) 90 mcg/inh aerosol 2 puff(s) inhaled every 6 hours amLODIPine Besylate 5 MG Tablet 1 tab(s) orally once a day Losartan Potassium-HCTZ 50-12.5 MG Tablet 1 tab(s) orally twice a day Pantoprazole Sodium 20 MG Tablet Delayed Release 1 tab(s) orally once a day Cetirizine HCl 10 MG Tablet 1 tab(s) orally once a day EPINEPHrine 0.3 MG KIT 0.3 MG INTRAMUSCULARLY ONCE , Notes to Pharmacist: *Please review and pick correct strength-formulation from Variable options. If intended option is not shown, discontinue and re-order from Quick Search*Ventolin HFA 108 (90 Base) MCG/ACT Aerosol Solution 2 puff(s) inhaled 4 times a day, PRN Vitamin D3 10 MCG TABLET 1 TAB(S) ORALLY ONCE A DAY , Notes to Pharmacist: *Please review and pick correct strength-formulation from Variable options. If intended option is not shown, discontinue and re-order from Quick Search*Calcium Acetate 667 MG Tablet 3 tab(s) orally 3 times a day Centrum Silver - Tablet 1 tab(s) orally once a day Vitamin B-12 250 MCG Tablet 1 tab(s) orally once a day Restasis 0.05 % Emulsion 1 gtt in each affected eye every 12 hours Esomeprazole Magnesium 20 MG Capsule Delayed Release 1 cap(s) orally once a day Fluticasone Propionate 50 MCG/ACT Suspension 1 spray(s) in each nostril bid Albuterol Sulfate HFA 108 (90 Base) MCG/ACT Aerosol Solution INHALE 2 PUFFS BY MOUTH EVERY 6 HOURS FOR 30 DAYS , Notes to Pharmacist: due for f/u with providerTaking SIT (TRADITIONAL) variable see record per schedule SC per schedule Taking PATADAY 0.2% solution 1 gtt in each affected eye once a day, PRN Taking AMLODIPINE 5 mg tablet 1 tab(s) orally once a day Taking HYDROCHLOROTHIAZIDE- LOSARTAN 12.5 mg-50 mg tablet 1 tab(s) orally once a day Taking PANTOPRAZOLE 20 mg delayed release tablet 1 tab(s) orally once a day Taking CETIRIZINE 10 mg tablet 1 tab(s) orally once a day Taking EPINEPHRINE 0.3 mg kit 0.3 mg intramuscularly once Taking NASAL WASHES N/A 1 quart of sterilized tap water or distilled water, 1 tsp NaCl, 1 pinch of baking soda as directed intranasally as needed Taking OLOPATADINE NASAL 665 mcg/inh spray 2 spray(s) intranasally 2 times a day Taking ALBUTEROL (EQV-PROAIR HFA) 90 mcg/inh aerosol 2 puff(s) inhaled every 6 hours Taking amLODIPine Besylate 5 MG Tablet 1 tab(s) orally once a day Taking Losartan Potassium-HCTZ 50-12.5 MG Tablet 1 tab(s) orally twice a day Taking Pantoprazole Sodium 20 MG Tablet Delayed Release 1 tab(s) orally once a day Taking Cetirizine HCl 10 MG Tablet 1 tab(s) orally once a day Taking EPINEPHrine 0.3 MG KIT 0.3 MG INTRAMUSCULARLY ONCE , Notes to Pharmacist: *Please review and pick correct strength-formulation from Variable options. If intended option is not shown, discontinue and re-order from Quick Search*Taking Ventolin HFA 108 (90 Base) MCG/ACT Aerosol Solution 2 puff(s) inhaled 4 times a day, PRN Taking Vitamin D3 10 MCG TABLET 1 TAB(S) ORALLY ONCE A DAY , Notes to Pharmacist: *Please review and pick correct strength-formulation from Variable options. If intended option is not shown, discontinue and re-order from Quick Search*Taking Calcium Acetate 667 MG Tablet 3 tab(s) orally 3 times a day Taking Centrum Silver - Tablet 1 tab(s) orally once a day Taking Vitamin B-12 250 MCG Tablet 1 tab(s) orally once a day Taking Restasis 0.05 % Emulsion 1 gtt in each affected eye every 12 hours Taking Esomeprazole Magnesium 20 MG Capsule Delayed Release 1 cap(s) orally once a day Taking Fluticasone Propionate 50 MCG/ACT Suspension 1 spray(s) in each nostril bid Taking Albuterol Sulfate HFA 108 (90 Base) MCG/ACT Aerosol Solution INHALE 2 PUFFS BY MOUTH EVERY 6 HOURS FOR 30 DAYS , Notes to Pharmacist: due for f/u with providerNot-Taking/PRNPataday 0.2 % Solution 1 gtt in each affected eye once a day, PRN OLOPATADINE NASAL 665 MCG/INH SPRAY 2 SPRAY(S) INTRANASALLY 2 TIMES A DAY , Notes to Pharmacist: *Please review for potential replacement for e-prescription and drug interaction check*Esomeprazole Magnesium 20 MG Capsule Delayed Release 1 cap(s) orally once a day ESOMEPRAZOLE 20 mg delayed release capsule 1 cap(s) orally once a day VENTOLIN HFA CFC free 90 mcg/inh aerosol 2 puff(s) inhaled 4 times a day, PRN VITAMIN D3 10 mcg tablet 1 tab(s) orally once a day CALCIUM ACETATE 667 mg tablet 3 tab(s) orally 3 times a day CENTRUM SILVER Therapeutic Multiple Vitamins with Minerals tablet 1 tab(s) orally once a day VITAMIN B12 250 mcg tablet 1 tab(s) orally once a day RESTASIS 0.05% emulsion 1 gtt in each affected eye every 12 hours ESOMEPRAZOLE 20 mg delayed release capsule 1 cap(s) orally once a day FLUTICASONE PROPIONATE 50 mcg/inh spray 1 spray(s) in each nostril bid OLOPATADINE NASAL 665 MCG/INH SPRAY 2 SPRAY(S) INTRANASALLY 2 TIMES A DAY , Notes to Pharmacist: *Please review for potential replacement for e-prescription and drug interaction check*ROSUVASTATIN 20 mg tablet 1 tab(s) orally once a day Rosuvastatin Calcium 20 MG Tablet 1 tab(s) orally once a day OLOPATADINE HYDROCHLORIDE 665 MCG/INH SPRAY 2 SPRAY(S) INTRANASALLY 2 TIMES A DAY , Notes to Pharmacist: *Please review for potential replacement for e-prescription and drug interaction check*Not- Taking/PRN Pataday 0.2 % Solution 1 gtt in each affected eye once a day, PRN Not-Taking/PRN OLOPATADINE NASAL 665 MCG/INH SPRAY 2 SPRAY(S) INTRANASALLY 2 TIMES A DAY , Notes to Pharmacist: *Please review for potential replacement for e-prescription and drug interaction check*Not-Taking/PRN Esomeprazole Magnesium 20 MG Capsule Delayed Release 1 cap(s) orally once a day Not-Taking/PRN ESOMEPRAZOLE 20 mg delayed release capsule 1 cap(s) orally once a day Not-Taking/PRN VENTOLIN HFA CFC free 90 mcg/inh aerosol 2 puff(s) inhaled 4 times a day, PRN Not-Taking/PRN VITAMIN D3 10 mcg tablet 1 tab(s) orally once a day Not-Taking/PRN CALCIUM ACETATE 667 mg tablet 3 tab(s) orally 3 times a day Not-Taking/PRN CENTRUM SILVER Therapeutic Multiple Vitamins with Minerals tablet 1 tab(s) orally once a day Not-Taking/PRN VITAMIN B12 250 mcg tablet 1 tab(s) orally once a day Not-Taking/PRN RESTASIS 0.05% emulsion 1 gtt in each affected eye every 12 hours Not-Taking/PRN ESOMEPRAZOLE 20 mg delayed release capsule 1 cap(s) orally once a day Not-Taking/PRN FLUTICASONE PROPIONATE 50 mcg/inh spray 1 spray(s) in each nostril bid Not-Taking/PRN OLOPATADINE NASAL 665 MCG/INH SPRAY 2 SPRAY(S) INTRANASALLY 2 TIMES A DAY , Notes to Pharmacist: *Please review for potential replacement for e-prescription and drug interaction check*Not-Taking/PRN ROSUVASTATIN 20 mg tablet 1 tab(s) orally once a day Not-Taking/PRN Rosuvastatin Calcium 20 MG Tablet 1 tab(s) orally once a day Not-Taking/PRN OLOPATADINE HYDROCHLORIDE 665 MCG/INH SPRAY 2 SPRAY(S) INTRANASALLY 2 TIMES A DAY , Notes to Pharmacist: *Please review for potential replacement for e-prescription and drug interaction check* Objective: * Vitals: Assessment: * Assessment: 1. A llergic rhinitis due to pollen - J30.1 (Primary) 2 . A llergic rhinitis due to animal (cat) (dog) hair and dander - J30.81 3 . O ther allergic rhinitis - J30.89 4 . O ther chronic allergic conjunctivitis - H10.45 Plan: * Treatment: * Procedure Codes: 9 5117 IMMUNOTHERAPY INJECTIONS * Follow Up: 4 Weeks * Billing Information: * Visit Code: * Procedure Codes: 84235 IMMUNOTHERAPY INJECTIONS. * Sign off status: Completed true * Provider: Martín Orlando MD Date: 0 08/01/2024 Generated for Deon rivera/Lennox/Kelly on: 0 08/06/2024 12:21 PM CDT History and Physical Notes * HPI (History of Present Illness) Category Sub-Category Detail Notes Category Not es *Introduction The patient is here for scheduled immunotherapy. Please see the attached specialty form regarding the specifics of the administration of these vaccines. As per our protocol, the must undergo a screening health questionnaire (medication changes, reaction(s) to last immunotherapy dose(s), current health status, ACT (if appropriate), self-injectable epinephrine on patient(?) and peak flow (if appropriate)). Also, the patient must wait in our office for 30 minutes after receiving the vaccine(s). Furthermore, every patient must have an epinephrine pen (self-injectable) with them at the time of administration--and carry if for the following 1.5 hours after they leave our office. The patient must also have taken their antihistamine the day of the injection, preferably 2 hours prior. The consent form for SCIT (subcutaneous immunotherapy) is on file.
--- OUTSIDE RECORDS SUMMARY | 2024-08-06 12:21 | XMS_ITS ---
Author Organization [facility] Address [address] [place] [address] Care Team Providers Care Appraiser Timber Name Role Phone Alise, Massimo Primary Care Provider UnavailFadia Glover Unavailable [phone] Gentry Espinosa Unavailable Unavailable Fidencio Orlando Unavailable [phone] REASON FOR VISIT SCIT - Traditional Schedule Allergy immunotherapy Medications Medication SIG (Take, Route, Frequency, Duration) Notes Start Date End Date Status FLUTICASONE PROPIONATE 50 mcg/inh 1 spray(s) in each nostril bid for 30 day(s) 03/23/2023 Not-Taking OLOPATADINE HYDROCHLORIDE 665 MCG/INH 2 SPRAY(S) INTRANASALLY 2 TIMES A DAY for 90 *Please review for potential replacement for e-prescription and drug interaction check* Not-Taking Rosuvastatin Calcium 20 MG 1 tab(s) orally once a day for 30 day(s) Not-Taking OLOPATADINE NASAL 665 MCG/INH 2 SPRAY(S) INTRANASALLY 2 TIMES A DAY for 30 DAYS *Please review for potential replacement for e-prescription and drug interaction check* Not-Taking ROSUVASTATIN 20 mg 1 tab(s) orally once a day for 30 day(s) Not-Taking ESOMEPRAZOLE 20 mg 1 cap(s) orally once a day for 30 day(s) Not-Taking VITAMIN B12 250 mcg 1 tab(s) orally once a day for 30 day(s) Not-Taking RESTASIS 0.05% 1 gtt in each affected eye every 12 hours for 30 day(s) Not-Taking CALCIUM ACETATE 667 mg 3 tab(s) orally 3 times a day for 30 day(s) Not-Taking CENTRUM SILVER Therapeutic Multiple Vitamins with Minerals 1 tab(s) orally once a day for 30 day(s) Not-Taking SIT (TRADITIONAL) variable per schedule SC per schedule Active VENTOLIN HFA CFC free 90 mcg/inh 2 puff(s) inhaled 4 times a day, PRN Not-Taking VITAMIN D3 10 mcg 1 tab(s) orally once a day for 30 day(s) Not-Taking ESOMEPRAZOLE 20 mg 1 cap(s) orally once a day Not-Taking Esomeprazole Magnesium 20 MG 1 cap(s) orally once a day Not-Taking Esomeprazole Magnesium 20 MG 1 cap(s) orally once a day for 30 day(s) Active Fluticasone Propionate 50 MCG/ACT 1 spray(s) in each nostril bid for 30 day(s) 03/23/2023 Active Vitamin B-12 250 MCG 1 tab(s) orally once a day for 30 day(s) Active Restasis 0.05 % 1 gtt in each affected eye every 12 hours for 30 day(s) Active Albuterol Sulfate HFA 108 (90 Base) MCG/ACT INHALE 2 PUFFS BY MOUTH EVERY 6 HOURS FOR 30 DAYS for 50 due for f/u with provider Active Calcium Acetate 667 MG 3 tab(s) orally 3 times a day for 30 day(s) Active Centrum Silver - 1 tab(s) orally once a day for 30 day(s) Active Vitamin D3 10 MCG 1 TAB(S) ORALLY ONCE A DAY for 30 DAY(S) *Please review and pick correct strength-formula tion from [employer] options. If intended option is not shown, discontinue and re-order from Quick Search* Active OLOPATADINE NASAL 665 MCG/INH 2 SPRAY(S) INTRANASALLY 2 TIMES A DAY *Please review for potential replacement for e-prescription and drug interaction check* Not-Taking Ventolin HFA 108 (90 Base) MCG/ACT 2 puff(s) inhaled 4 times a day, PRN Active Losartan Potassium-HCTZ 50-12.5 MG 1 tab(s) orally twice a day Active Pantoprazole Sodium 20 MG 1 tab(s) orally once a day Active amLODIPine Besylate 5 MG 1 tab(s) orally once a day Active Cetirizine HCl 10 MG 1 tab(s) orally once a day for 30 days Active EPINEPHrine 0.3 MG 0.3 MG INTRAMUSCULARLY ONCE for 30 DAY(S) *Please review and pick correct strength-formula tion from [employer] options. If intended option is not shown, discontinue and re-order from Quick Search* Active Pataday 0.2 % 1 gtt in each affected eye once a day, PRN Not-Taking OLOPATADINE NASAL 665 mcg/inh 2 spray(s) intranasally 2 times a day for 30 days Active ALBUTEROL (EQV-PROAIR HFA) 90 mcg/inh 2 puff(s) inhaled every 6 hours for 30 days Active NASAL WASHES N/A as directed intranasally as needed for 30 Active EPINEPHRINE 0.3 mg 0.3 mg intramuscularly once for 30 day(s) Active PATADAY 0.2% 1 gtt in each affected eye once a day, PRN Active AMLODIPINE 5 mg 1 tab(s) orally once a day Active CETIRIZINE 10 mg 1 tab(s) orally once a day for 30 days Active HYDROCHLOROTHIAZIDE -LOSARTAN 12.5 mg-50 mg 1 tab(s) orally once a day Active PANTOPRAZOLE 20 mg 1 tab(s) orally once a day Active Encounters Encounter Location Date Provider Diagnosis [facility] [address] [place] [address] 07/11/2024 Fidencio Orlando Allergic rhinitis du e to pollen J30.1 ; Allergic rhinitis due to animal (cat) (dog) hair and dander J30.81 ; Other allergic rhinitis J30.89 and Other chronic allergic conjunctivitis H10.45 Assessments Encounter Date Diagnosis (ICD Code) Assessment Notes Treatment Notes Treatment Clinical Notes Section Notes 07/11/2024 Allergic rhinitis due to pollen (ICD-10 - J30.1) 07/11/2024 Allergic rhinitis due to animal (cat) (dog) hair and dander (ICD-10 - J30.81) 07/11/2024 Other allergic rhinitis (ICD-10 - J30.89) 07/11/2024 Other chronic allergic conjunctivitis (ICD-10 - H10.45) Plan Of Treatment Medication Medication Name Sig Start Date Stop Date Notes SIT (TRADITIONAL) variable per schedule SC per schedule Next Appt Details Follow Up: 4 Weeks, Reason: Provider Name:Fidencio Ndiaye Darion , 08/22/2024 10:30:00 AM[facility] [address], [place], [address], Progress Notes * Heather EUGENEDOB:1940 (83 yo F)Acc No.[id number]:07/11/2024 SCIT-Aeroallergen Patient: Heather Barragan AM Provider: Martín Orlando MD :1940 A ge:83 Y S ex:Female Date:07/11/2024 Address:[address] [place], [place] [id number] Pcp:Massimo Carrero Subjective: * Chief Complaints: * [...] *Please review and pick correct strength-formulation from [employer] options. If intended option is not shown, discontinue and re-order from Quick Search*Ventolin HFA 108 (90 Base) MCG/ACT Aerosol Solution 2 puff(s) inhaled 4 times a day, PRN Vitamin D3 10 MCG TABLET 1 TAB(S) ORALLY ONCE A DAY , Notes to Pharmacist: *Please review and pick correct strength-formulation from [employer] options. If intended option is not shown, [...] *Please review and pick correct strength-formulation from [employer] options. If intended option is not shown, discontinue and re-order from Quick Search*Taking Ventolin HFA 108 (90 Base) MCG/ACT Aerosol Solution 2 puff(s) inhaled 4 times a day, PRN Taking Vitamin D3 10 MCG TABLET 1 TAB(S) ORALLY ONCE A DAY , Notes to Pharmacist: *Please review and pick correct strength-formulation from [employer] options. If intended option is not shown, [...] Information: * Visit Code: * Procedure Codes: 43178 IMMUNOTHERAPY INJECTIONS. * TS UMPIRE Sign off status: Completed true * Provider: Martín Orlando MD Date: 0 07/11/2024 Generated for Deon rivera/Lennox/eTransmitting on: 0 08/06/2024 12:21 PM CDT History [...]
--- OUTSIDE RECORDS SUMMARY | 2024-08-06 12:21 | XMS_ITS ---
Author Organization [facility] Address [address] [place] [address] Care Team Providers Care Emergency Room Physician Assistant Name Role Phone Alise, Massimo Primary Care Provider UnavailFadia Glover Unavailable [phone] Gentry Espinosa Unavailable Unavailable Fidencio Orlando Unavailable [phone] REASON FOR VISIT SCIT - Traditional Schedule Allergy immunotherapy Medications Medication SIG (Take, Route, Frequency, Duration) Notes Start Date End Date Status OLOPATADINE HYDROCHLORIDE 665 MCG/INH 2 SPRAY(S) INTRANASALLY 2 TIMES A DAY for 90 *Please review for potential replacement for e-prescription and drug interaction check* Not-Taking SIT (TRADITIONAL) variable per schedule SC per schedule Active ROSUVASTATIN 20 mg 1 tab(s) orally once a day for 30 day(s) Not-Taking Rosuvastatin Calcium 20 MG 1 tab(s) orally once a day for 30 day(s) Not-Taking OLOPATADINE NASAL 665 MCG/INH 2 SPRAY(S) INTRANASALLY 2 TIMES A DAY for 30 DAYS *Please review for potential replacement for e-prescription and drug interaction check* Not-Taking CENTRUM SILVER Therapeutic Multiple Vitamins with Minerals 1 tab(s) orally once a day for 30 day(s) Not-Taking VITAMIN B12 250 mcg 1 tab(s) orally once a day for 30 day(s) Not-Taking FLUTICASONE PROPIONATE 50 mcg/inh 1 spray(s) in each nostril bid for 30 day(s) 03/23/2023 Not-Taking RESTASIS 0.05% 1 gtt in each affected eye every 12 hours for 30 day(s) Not-Taking ESOMEPRAZOLE 20 mg 1 cap(s) orally once a day for 30 day(s) Not-Taking VENTOLIN HFA CFC free 90 mcg/inh 2 puff(s) inhaled 4 times a day, PRN Not-Taking VITAMIN D3 10 mcg 1 tab(s) orally once a day for 30 day(s) Not-Taking Esomeprazole Magnesium 20 MG 1 cap(s) orally once a day Not-Taking ESOMEPRAZOLE 20 mg 1 cap(s) orally once a day Not-Taking CALCIUM ACETATE 667 mg 3 tab(s) orally 3 times a day for 30 day(s) Not-Taking Vitamin B-12 250 MCG 1 tab(s) orally once a day for 30 day(s) Active Fluticasone Propionate 50 MCG/ACT 1 spray(s) in each nostril bid for 30 day(s) 03/23/2023 Active Albuterol Sulfate HFA 108 (90 Base) MCG/ACT INHALE 2 PUFFS BY MOUTH EVERY 6 HOURS FOR 30 DAYS for 50 due for f/u with provider Active Restasis 0.05 % 1 gtt in each affected eye every 12 hours for 30 day(s) Active Esomeprazole Magnesium 20 MG 1 cap(s) orally once a day for 30 day(s) Active Ventolin HFA 108 (90 Base) MCG/ACT 2 puff(s) inhaled 4 times a day, PRN Active Vitamin D3 10 MCG 1 TAB(S) ORALLY ONCE A DAY for 30 DAY(S) *Please review and pick correct strength-formula tion from Twirl [employer] options. If intended option is not shown, discontinue and re-order from Quick Search* Active OLOPATADINE NASAL 665 MCG/INH 2 SPRAY(S) INTRANASALLY 2 TIMES A DAY *Please review for potential replacement for e-prescription and drug interaction check* Not-Taking Calcium Acetate 667 MG 3 tab(s) orally 3 times a day for 30 day(s) Active Centrum Silver - 1 tab(s) orally once a day for 30 day(s) Active EPINEPHrine 0.3 MG 0.3 MG INTRAMUSCULARLY ONCE for 30 DAY(S) *Please review and pick correct strength-formula tion from Twirl TV options. If intended option is not shown, discontinue and re-order from Quick Search* Active Pantoprazole Sodium 20 MG 1 tab(s) orally once a day Active Cetirizine HCl 10 MG 1 tab(s) orally once a day for 30 days Active amLODIPine Besylate 5 MG 1 tab(s) orally once a day Active Losartan Potassium-HCTZ 50-12.5 MG 1 tab(s) orally twice a day Active EPINEPHRINE 0.3 mg 0.3 mg intramuscularly once for 30 day(s) Active NASAL WASHES N/A as directed intranasally as needed for 30 Active OLOPATADINE NASAL 665 mcg/inh 2 spray(s) intranasally 2 times a day for 30 days Active ALBUTEROL (EQV-PROAIR HFA) 90 mcg/inh 2 puff(s) inhaled every 6 hours for 30 days Active Pataday 0.2 % 1 gtt in each affected eye once a day, PRN Not-Taking CETIRIZINE 10 mg 1 tab(s) orally once a day for 30 days Active HYDROCHLOROTHIAZIDE -LOSARTAN 12.5 mg-50 mg 1 tab(s) orally once a day Active PANTOPRAZOLE 20 mg 1 tab(s) orally once a day Active PATADAY 0.2% 1 gtt in each affected eye once a day, PRN Active AMLODIPINE 5 mg 1 tab(s) orally once a day Active Encounters Encounter Location Date Provider Diagnosis [facility] [address] [place] [address] 06/20/2024 Fidencio Orlando Allergic rhinitis du e to pollen J30.1 ; Allergic rhinitis due to animal (cat) (dog) hair and dander J30.81 ; Other allergic rhinitis J30.89 and Other chronic allergic conjunctivitis H10.45 Assessments Encounter Date Diagnosis (ICD Code) Assessment Notes Treatment Notes Treatment Clinical Notes Section Notes 06/20/2024 Allergic rhinitis due to pollen (ICD-10 - J30.1) 06/20/2024 Allergic rhinitis due to animal (cat) (dog) hair and dander (ICD-10 - J30.81) 06/20/2024 Other allergic rhinitis (ICD-10 - J30.89) 06/20/2024 Other chronic allergic conjunctivitis (ICD-10 - H10.45) Plan Of Treatment Medication Medication Name Sig Start Date Stop Date Notes SIT (TRADITIONAL) variable per schedule SC per schedule Next Appt Details Follow Up: 4 Weeks, Reason: Provider Name:Fidencio Ndiaye Darion , 08/22/2024 10:30:00 AM[facility] [address], [place], [address], Progress Notes * Heather EUGENEDOB:1940 (83 yo F)Acc No.[id number]:06/20/2024 SCIT-Aeroallergen Patient: Heather Barragan AM Provider: Martín Orlando MD :1940 A ge:83 Y S ex:Female Date:06/20/2024 Address:[address] [place], [place] [id number] Pcp:Massimo Carrero Subjective: * Chief Complaints: * [...] Hospitalization/Major Diagno stic Procedure: * Medications: T akingPATADAY 0.2% solution 1 gtt in each affected eye once a day, PRN AMLODIPINE 5 mg tablet 1 tab(s) orally once a day HYDROCHLOROTHIAZIDE-LOSARTAN 12.5 mg-50 mg tablet 1 tab(s) orally once a day PANTOPRAZOLE 20 mg delayed release tablet 1 tab(s) orally once a day SIT (TRADITIONAL) variable see record per schedule SC per schedule CETIRIZINE 10 mg tablet 1 tab(s) orally [...] *Please review and pick correct strength-formulation from Twirl TV options. If intended option is not shown, discontinue and re-order from Quick Search*Ventolin HFA 108 (90 Base) MCG/ACT Aerosol Solution 2 puff(s) inhaled 4 times a day, PRN Vitamin D3 10 MCG TABLET 1 TAB(S) ORALLY ONCE A DAY , Notes to Pharmacist: *Please review and pick correct strength-formulation from Twirl TV options. If intended option is not shown, [...] to Pharmacist: due for f/u with providerTaking PATADAY 0.2% solution 1 gtt in each affected eye once a day, PRN Taking AMLODIPINE 5 mg tablet 1 tab(s) orally once a day Taking HYDROCHLOROTHIAZIDE-LOSARTAN 12.5 mg-50 mg tablet 1 tab(s) orally once a day Taking PANTOPRAZOLE 20 mg delayed release tablet 1 tab(s) orally once a day Taking SIT (TRADITIONAL) variable see record per schedule SC per schedule Taking CETIRIZINE 10 mg tablet 1 tab(s) [...] *Please review and pick correct strength-formulation from Twirl TV options. If intended option is not shown, discontinue and re-order from Quick Search*Taking Ventolin HFA 108 (90 Base) MCG/ACT Aerosol Solution 2 puff(s) inhaled 4 times a day, PRN Taking Vitamin D3 10 MCG TABLET 1 TAB(S) ORALLY ONCE A DAY , Notes to Pharmacist: *Please review and pick correct strength-formulation from Twirl TV options. If intended option is not shown, [...] Information: * Visit Code: * Procedure Codes: 73722 IMMUNOTHERAPY INJECTIONS. * T HARVEST WORKER Sign off status: Completed true * Provider: Martín Orlando MD Date: 0 06/20/2024 Generated for Printi ng/Lennox/eTranryanitting on: 0 08/06/2024 12:21 PM CDT History [...]
--- OUTSIDE RECORDS SUMMARY | 2024-08-06 12:22 | XMS_ITS | Continuity of Care Document ---
Author Organization [facility] Address [address] [place] [address] Phone Care Team Providers Care Linux System Engineer Name Role Phone [facility] Unavailable Unavail able Reymundo Olivares Unavailable Unavailable Procedures Procedure Date BF Polycarb Sphcyl [place] To +/-4d .12-2d Frames Deluxe Tax - Medical Eye Exam & Treatment No Script Refraction Advance Directives Directive Yes / No Effective Date File Name No Information Encounters Encounter Description Practice Location Reason(s) For Visit Diagnoses Date Provider Providers Copied on Encounter [facility], [address] [place] [address] [address], [place], [place], [id number], [place] tel:[phone] [facility] No Information [phone] [facility] . [address] [facility] [address], [facility] [address], [place], [id number], [place]. tel:[phone] Referring Provider: Den Valencia, [address] [place] [address] [address], [place], [address]. tel:[phone] sulting Provider: Reymundo Olivares, [address] [place] [address], [place], [address]. tel:[phone] [facility], [id number] [place] [address] [address], [place], [place], [id number], [place] tel:[phone] [facility] No Information 2-[address] , [address], [place], [address], [place]. tel:[phone] Family History Family Member Type Diagnosis Age At Onset No Information Payers Payer name Insurance type Covered republican ID Authoriza tion(s) No Information Social History Type Description Quantity Date Captured Comments Sex Female Smoking Status No Information Chief Complaint And Reason For Visit No Information Reason For Referral Reason For Referral No Information History Of Present Illness Encounter Date Complaint History Of Prese nt Illness No Information Functional Status Date Functional Assessmen t No Information Instructions Date Instruction Additional Infor mation No Information Assessments Type Assessment Date No Information Patient Care Teams Name Effective Dates (start - stop) Status Members No Information
== END 2024-08-06 10:30 | disposition home or self-care (01) ==
LOC: ANHLAB 10:30
PROVIDERS: PCP Internal Medicine; Visit Provider Internal Medicine
DX: R30.0 Dysuria (principal)
CPT/HCPCS: 81001

== ENCOUNTER 2024-10-03 14:49 | Outpatient (CLI) | payer OTHER, SELFPAY ==
--- NOTE | ~2024-10-03 | MR_ITS ---
MRI of the lumbar spine Clinical History: Radiculopathy Technique: Axial T2-weighted images, and sagittal T1-weighted, T2-weighted, and T2 fat-sat images wer e acquired. Findings: There is levoscoliosis of lumbar spine. No fracture or subluxation evident otherwise. No garcia spicious bone marrow signal reality seen. At L1-L2, there is minimal disc bulge and moderate facet arthropathy. No central canal stenosis. No d efinite neural foraminal narrowing. At L2-L3, there is mild degenerative disc 9. There is minimal disc bulge and mild to moderate facet a rthropathy. No central canal stenosis. There is minimal right neural foraminal narrowing. Left neural foramen preserved. At L3-L4, there is degenerative disc narrowing with mild diffuse disc bulge and moderate facet arthro abdulaziz. No central canal stenosis. There is moderate to severe right neural foraminal narrowing. Left neural foramen preserved. At L4-L5, there is severe degenerative disc narrowing. There is mild disc bulge and severe facet arth ropathy, especially left side, with left lateral recess stenosis. There is moderate right neural fora dean narrowing, and severe left neural foraminal narrowing. No central canal stenosis. At L5-S1, there is degenerative disc narrowing with mild disc bulge and severe facet arthropathy bila terally. No central canal stenosis. There is severe left neural foraminal narrowing. Right neural for amen preserved. Paravertebral soft tissues are unremarkable. Impression: Levoscoliosis with advanced degenerative spondylosis and multilevel neural foraminal narrowing, as de tailed above. Reviewed, dictated and finalized at [facility]. Impression: Levoscoliosis with advanced degenerative spondylosis and multilevel neural fora dean narrowing, as detailed above.
== END 2024-10-03 14:50 | disposition home or self-care (01) ==
PROVIDERS: Visit Provider Internal Medicine
DX: M41.86 Other forms of scoliosis, lumbar region (principal); M48.061 Spinal stenosis, lumbar region without neurogenic claudication; M48.07 Spinal stenosis, lumbosacral region
CPT/HCPCS: 72148

== ENCOUNTER 2025-02-06 09:07 | Outpatient (CLI) | payer OTHER, SELFPAY ==
--- NOTE | ~2025-02-06 | DEXA_ITS ---
Bone Density Report Name: WINIFRED BUNN Age: 84 Sex: Female Ethnicity: White Date of : 1940 Indication: postmenopausal osteoporosis; height loss; cancer; hysterectomy; Referring Provider: Marisela Taveras Study: Bone densitometry was performed. Exam Date: February 06, 2025 Accession number: [id number] Bone Density: Region BMD T-score Z-score Classification AP Spine(L1, L2) 0.677 -2.7 -0.1 Osteoporosis Femoral Neck (Left) 0.447 -3.6 -1.2 Osteoporosis Total Hip (Left) 0.576 -3.0 -0.8 Osteoporosis Femoral Neck (Right) 0.483 -3.3 -0.9 Osteoporosis Total Hip (Right) 0.575 -3.0 -0.8 Osteoporosis Total Hip Mean 0.576 -3.0 -0.8 Osteoporosis World Health Organization criteria for BMD impression classify patients as: Normal (T-score at or above -1.0), Osteopenia (T-score between -1.0 and -2.5), or Osteoporosis (T-score at or below -2.5). 10-year Fracture Risk: FRAX not reported because: Some T-score for Spine Total or Hip Total or Femoral Neck at or below -2.5 Previous Exams: -- Region Exam Age BMD T-score BMD Change BMD Change Date g/cm2 vs Baseline vs Previous -- AP Spine (L1-L2) 02/06/2025 84 0.677 -2.7 -0.3% -0.3% 09/22/2020 80 0.679 -2.7 Total Hip(Left) 02/06/2025 84 0.576 -3.0 -15.4%* -15.4%* 09/22/2020 80 0.681 -2.1 Total Hip(Right) 02/06/2025 84 0.575 -3.0 -17.3%* -17.3%* 09/22/2020 80 0.695 -2.0 -- *Denotes significance at 95% confidence level, LSC for AP Spine = 0.022 g/cm2, LSC for Total Hip = 0.027 g/cm2 Clinical Information Provided by Patient: Smokes Has used the following medications: Vitamin D, Calcium Has the following medical conditions: Cancer, Hysterectomy Patient maximum height was 62 Menopause Age: 39 No regular weight bearing exercise Does not regularly consume dairy products Drinks caffeinated beverages Onset of menses at age 17 Number of children 2 Impression: The patient has osteoporosis, based on the Left Femoral Neck T-score. The patient has risk factors, including: smoking. The BMD for the Total Hip(Left) decreased, changing by -15.4% since the last DXA exam. The BMD for the Total Hip(Right) decreased, changing by -17.3% since the last DXA exam. Discussion: INCREASED RISK OF FRACTURE. BONE DENSITY IS UNDESIRABLY LOW AT ONE OR MORE SKELETAL SITES, CONSISTENT WITH POSTMENOPAUSAL OSTEOPOROSIS. This patient's lowest T-score meets the World Health Organization's (WHO) criteria for osteoporosis at one or more sites (T-score -2.5 or below). In untreated patients, the risk of osteoporotic fracture increases approximately two-fold for each 1.0 SD decrease in T-score. Low bone density is not the only risk factor for fracture; also consider factors such as patient's age, frailty or poor health, risk of falling, risk of injury, previous osteoporotic fracture, family history of osteoporosis, cigarette smoking, low body weight, etc. Not everyone with low bone mineral density has osteoporosis; osteomalacia and other metabolic bone disorders should also be considered. Patients who have osteoporosis should be evaluated for specific diseases and conditions (secondary causes) that may cause or contribute to bone loss. The [place] [employer] of Clinical Endocrinologists (AACE) and National Osteoporosis Foundation (NOF) recommend pharmacologic intervention for all postmenopausal women whose T-score is in this range. The patient should follow a healthful lifestyle (good nutrition with adequate calcium and vitamin D, and appropriate weight-bearing exercise). Follow-Up: Consider a repeat BMD and Vertebral Fracture Assessment (VFA) exam in 2 years or sooner if medically necessary, to reassess this patient's status. Reported by: HECTOR on 02/06/2025 9:38:00 AM. Reviewed, dictated and finalized at location A.
== END 2025-02-06 09:08 | disposition home or self-care (01) ==
PROVIDERS: PCP Internal Medicine; Visit Provider Nurse Practitioner
DX: M85.88 Other specified disorders of bone density and structure, other site (principal); M81.0 Age-related osteoporosis without current pathological fracture
CPT/HCPCS: 77080